=== PATIENT | female | born 1990 | race American Indian/Alaskan Native ===

== ENCOUNTER 2016-07-11 | Emergency (ER) | payer MEDICAID ==
[2016-07-11 00:51] VITALS: BP 130/80
== END 2016-07-11 00:49 | disposition left against medical advice (07) ==
LOC: ED
DX: K08.89 Other specified disorders of teeth and supporting structures (principal); Z53.21 Procedure and treatment not carried out due to patient leaving prior to being seen by health care provider

== ENCOUNTER 2016-08-17 18:06 | Emergency (ER) | payer MEDICAID ==
[2016-08-17 19:56] LABS: Basophils % (Auto) 0.3 % (0.0-1.8); Eosinophils % (Auto) 0.2 % (0.0-4.3); Hematocrit 36.2 % (30.3-42.9); Mean Corpuscular HGB Conc 33 % (30-34); Mean Corpuscular Hemoglobin 27 pg (28-32); Mean Corpuscular Volume 82 fl (79-97); Platelet Count 194 K/mm3 (140-440); Red Blood Count 4.42 M/mm3 (3.65-5.03); Red Cell Distribution Width 14.2 % (13.2-15.2); White Blood Count 11.4 K/mm3 (4.5-11.0)
[2016-08-17 20:09] LABS: Anion Gap 14 mmol/L; BUN/Creatinine Ratio 6.66; Blood Urea Nitrogen 4 mg/dL (7-17); Calcium 8.9 mg/dL (8.4-10.2); Carbon Dioxide 22 mmol/L (22-30); Chloride 99.6 mmol/L (98-107); Glucose 85 mg/dL (65-100); Sodium 132 mmol/L (137-145)
[2016-08-17 20:28] LABS: Bacteria,Urine 1+ /HPF (Negative); Bilirubin,Urine NEG (Negative); Blood,Urine NEG (Negative); Ketones,Urine NEG (Negative); Leukocyte Esterase,Urine MOD (Negative); Mucus,Urine FEW /HPF; Nitrite,Urine NEG (Negative); Protein,Urine <15 mg/dL mg/dL (Negative); Urobilinogen,Urine < 2.0 mg/dL (<2.0); WBC,Urine < 1.0 /HPF (0.0-6.0)
[2016-08-17] MEDS ORDERED: ZITHROMAX PO ONE (22:43)
[2016-08-17] MEDS ORDERED: ROBITUSSIN DM PO ONE (22:48)
[2016-08-17] MEDS ORDERED: TYLENOL PO ONE (22:48)
--- NOTE | 2016-08-17 22:55 | Emergency Department Report ---
HPI - General Chief Complaint: Upper Respiratory Infection Time Seen by Provider: 08/17/16 22:25 - HPI HPI: The patient's 26-year-old female who presents for evaluation of cough and chest pain. The patient reports 1 week of productive cough of yellow sputum, and associated with bilateral anterior chest pain, aching in quality, 7/10 in severity, exacerbated with coughing, improved with rest. The patient denies trauma to the chest wall, fever, syncope, hemoptysis, unilateral leg swelling, oral contraceptive use, recent immobilization, history of DVT or PE, hx cancer. The patient shares that she tested positive for 1 week ago. ED Past Medical Hx - Past Medical History Hx Hypertension: Yes Hx Congestive Heart Failure: No Hx Diabetes: No Hx Deep Vein Thrombosis: No Hx Renal Disease: No Hx Sickle Cell Disease: No Hx Headaches / Migraines: Yes Hx Seizures: No Hx Asthma: No Hx COPD: No Hx HIV: No Additional medical history: Abscess left armpit in the past. Hemorrhoids - Surgical History Past Surgical History?: Yes Additional Surgical History: 08/2013 ----PT DENIES THIS INFO TODAY - Social History Smoking Status: Current Every Day Smoker Substance Use Type: None - Medications Home Medications: Home Medications Medication Instructions Recorded Confirmed Last Taken Type Sertraline HCl [Zoloft] 50 mg PO DAILY 01/29/16 01/29/16 Unknown History Acetaminophen/Codeine [Tylenol #3] 1 tab PO Q8H PRN #10 tablet 03/06/16 Unknown Rx Hydrocortisone 2.5% [Proctosol-Hc] 28.35 gm NE BID #1 tube 03/06/16 Unknown Rx Amoxicillin [Amoxicillin TAB] 875 mg PO BID #20 tablet 06/09/16 Unknown Rx Ibuprofen [Motrin 800 MG tab] 800 mg PO BID PRN #14 tablet 06/09/16 Unknown Rx ALBUTEROL Inhaler [ProAir HFA 2 puff IH QID PRN #1 inhalation 08/17/16 Unknown Rx Inhaler] Acetaminophen [Acetaminophen TAB] 500 mg PO Q6HR #30 tablet 08/17/16 Unknown Rx Azithromycin [Zithromax Z-DINORAH] 250 mg PO QDAY #6 tablet 08/17/16 Unknown Rx guaiFENesin DM [Robitussin Dm] 10 ml PO Q6HR #180 ml 08/17/16 Unknown Rx ED Review of Systems ROS: Stated complaint: COLD SYMPTOMS Other details as noted in HPI Constitutional: denies: fever ENT: denies: throat or neck pain Respiratory: reports cough, denies: shortness of breath Cardiovascular: reports chest pain Endocrine: denies unexplained weight loss or gain Gastrointestinal: denies: abdominal pain, nausea Genitourinary: denies: dysuria Musculoskeletal: denies: leg swelling Skin: denies: rash Neurological: denies: headache Hematological/Lymphatic: denies: easy bleeding or easy bruising Psych: denies sadness or hopelessness Physical Exam - Physical Exam Vital Signs: Vital Signs 08/17/16 19:03 Temperature 99.6 F Pulse Rate 117 H Respiratory 20 Rate Blood Pressure 127/82 O2 Sat by Pulse 100 Oximetry Physical Exam: General: well-nourished, well-developed, no acute distress Head: Normocephalic, atraumatic Eyes: normal sclera ENT: Mucous membranes are pale and dry, bilateral nasal congestion present Neck: trachea midline, neck supple, No neck stiffness, no cervical adenopathy Respiratory: Breath sounds equal bilaterally, no wheezing, rales, or rhonchi Cardio: S1 and S2 present, no murmurs, rubs, gallops, capillary refill is delayed Abdomen: Normoactive bowel sounds, soft abdomen, no tenderness Chest WALL/Back: tenderness to palpation of the bilateral anterior chest wall, no CVA tenderness with percussion Musc: No pitting edema Skin: No rash Neuro: no facial drooping, normal speech Psych: Normal affect ED Course Vital Signs 08/17/16 19:03 Temperature 99.6 F Pulse Rate 117 H Respiratory 20 Rate Blood Pressure 127/82 O2 Sat by Pulse 100 Oximetry ED Medical Decision Making - Lab Data Result diagrams: 08/17/16 19:41 08/17/16 19:41 - Medical Decision Making The patient was seen and examined by myself. The patient is placed on a stem roller or crusher operator and continuous pulse ox. On initial evaluation, the patient was found to be in no distress. Evaluation orders were placed. EKG was negative for findings suggestive of acute cardiac infarct. The patient is given robitussin DM for their cough, Tylenol for pain, and a Zithromax tab. Lab results were not concerning. The patient declined chest x-ray citing preference to avoid potential radiation exposure to fetus, despite being informed that the fetus could be shielded with lead. The patient was reevaluated and reported that their symptoms were improved. . On reexamination the patient is found to have normal respiratory rate and O2 sat on pulse oximetry, with no costal retractions or diminishment of breath sounds on auscultation. The patient has a low port score and is suitable for home antibiotic treatment, if pneumonia is in fact present. She is given a prescription for Zithromax. The patient is stable for discharge with outpatient follow-up. The patient is given follow-up and return instructions. The patient expressed understanding and agreed with the plan. The patient is discharged in stable condition. Critical care attestation.: If time is entered above; I have spent that time in minutes in the direct care of this critically ill patient, excluding procedure time. ED Disposition Clinical Impression: Acute chest pain, Upper respiratory infection, acute, Dehydration Disposition: DISCHARGED TO HOME OR SELFCARE Is pt being admited?: No Does the pt Need Aspirin: No Condition: Stable Instructions: Chest Pain (ED), Costochondritis (ED), Viral Syndrome (ED), Upper Respiratory Infection (ED) Referrals: DR ANTHONY [Other] - 3-5 Days Time of Disposition: 22:50
[2016-08-18 00:06] VITALS: BP 137/88
== END 2016-08-18 00:06 | disposition home or self-care (01) ==
LOC: ED 18:06
DX: J06.9 Acute upper respiratory infection, unspecified (principal); R07.9 Chest pain, unspecified; E86.0 Dehydration; I10 Essential (primary) hypertension; G43.909 Migraine, unspecified, not intractable, without status migrainosus; F17.200 Nicotine dependence, unspecified, uncomplicated
CPT/HCPCS: 36415; 80048; 81001; 84703; 85025; 99284

== ENCOUNTER 2016-11-05 15:06 | Outpatient (CLI) | payer MEDICAID ==
[2016-11-05 17:03] VITALS: BP 126/75
[2016-11-05] MEDS ORDERED: TYLENOL PO ONE (17:20)
[2016-11-05 17:39] LABS: Bacteria,Urine 3+ /HPF (Negative); Bilirubin,Urine NEG (Negative); Blood,Urine NEG (Negative); Ketones,Urine NEG (Negative); Leukocyte Esterase,Urine TR (Negative); Mucus,Urine 3+ /HPF; Nitrite,Urine NEG (Negative)
== END 2016-11-05 18:10 | disposition home or self-care (01) ==
LOC: TRG 15:06
PROVIDERS: ATTEND Obstetrics & Gynecology
DX: O47.1 False labor at or after 37 completed weeks of gestation (principal); Z3A.38 38 weeks gestation of pregnancy
CPT/HCPCS: 59025; 81001

== ENCOUNTER 2016-11-07 22:09 | Outpatient (CLI) | payer MEDICAID ==
[2016-11-07 22:27] VITALS: BP 130/81
== END 2016-11-07 22:53 | disposition home or self-care (01) ==
LOC: TRG 22:09
PROVIDERS: ATTEND Obstetrics & Gynecology
DX: O47.1 False labor at or after 37 completed weeks of gestation (principal); Z3A.38 38 weeks gestation of pregnancy
CPT/HCPCS: 59025

== ENCOUNTER 2016-11-15 01:49 | Outpatient (CLI) | payer MEDICAID ==
[2016-11-15] MEDS ORDERED: ROBITUSSIN PO PRN (02:25)
[2016-11-15 03:36] LABS: Hematocrit 34.7 % (30.3-42.9); Hemoglobin 11.2 gm/dl (10.1-14.3); Mean Corpuscular HGB Conc 32 % (30-34); Mean Corpuscular Volume 80 fl (79-97); Platelet Count 212 K/mm3 (140-440); Red Blood Count 4.34 M/mm3 (3.65-5.03); Red Cell Distribution Width 14.7 % (13.2-15.2); White Blood Count 13.1 K/mm3 (4.5-11.0)
[2016-11-15 03:37] LABS: Mean Corpuscular Hemoglobin 26 pg (28-32)
[2016-11-15 03:39] LABS: Bacteria,Urine 1+ /HPF (Negative); Bilirubin,Urine NEG (Negative); Blood,Urine NEG (Negative); Ketones,Urine NEG (Negative); Leukocyte Esterase,Urine NEG (Negative); Nitrite,Urine NEG (Negative); Protein,Urine <15 mg/dL mg/dL (Negative); Urobilinogen,Urine < 2.0 mg/dL (<2.0); WBC,Urine < 1.0 /HPF (0.0-6.0)
[2016-11-15 04:00] LABS: Alanine Aminotransferase 8 units/L (7-56)
[2016-11-15 04:14] VITALS: BP 134/92
--- NOTE | 2016-11-15 04:14 | XRay Report ---
FINAL REPORT PROCEDURE: XR CHEST ROUTINE 2V TECHNIQUE: PA and lateral chest radiographs were obtained. CPT 06345 HISTORY: coughing COMPARISON: No prior studies are available for comparison. FINDINGS: Heart: Normal. Mediastinum/Vessels: Normal. Lungs/Pleural space: Normal. Bony thorax: No acute osseous abnormality. Other: IMPRESSION: Normal examination.
[2016-11-15 04:49] LABS: Lactate Dehydrogenase 222 units/L (91-180); Uric Acid 4.8 mg/dL (3.5-7.6)
== END 2016-11-15 04:35 | disposition home or self-care (01) ==
LOC: TRG 01:49
PROVIDERS: ATTEND Obstetrics & Gynecology
DX: O47.1 False labor at or after 37 completed weeks of gestation (principal); O26.893 Other specified pregnancy related conditions, third trimester; R05 Cough; O99.333 Smoking (tobacco) complicating pregnancy, third trimester; Z3A.39 39 weeks gestation of pregnancy
CPT/HCPCS: 36415; 59025; 71020; 81001; 82565; 83615; 84450; 84460; 84550; 85027

== ENCOUNTER 2016-11-20 22:21 | Outpatient (CLI) | payer MEDICAID ==
[2016-11-20 23:51] VITALS: BP 133/87
== END 2016-11-21 00:02 | disposition home or self-care (01) ==
LOC: TRG 22:21
PROVIDERS: ATTEND Obstetrics & Gynecology
DX: O48.0 Post-term pregnancy (principal); Z3A.40 40 weeks gestation of pregnancy

== ENCOUNTER 2016-11-22 18:35 | Outpatient (CLI) | payer MEDICAID ==
[2016-11-22 20:00] LABS: Bacteria,Urine 3+ /HPF (Negative); Bilirubin,Urine NEG (Negative); Blood,Urine NEG (Negative); Ketones,Urine NEG (Negative); Leukocyte Esterase,Urine SM (Negative); Mucus,Urine FEW /HPF; Nitrite,Urine NEG (Negative); Protein,Urine <15 mg/dL mg/dL (Negative); Urobilinogen,Urine < 2.0 mg/dL (<2.0)
[2016-11-22 20:58] VITALS: BP 120/64
== END 2016-11-22 20:10 | disposition home or self-care (01) ==
LOC: TRG 18:35 → LD 11-23 03:07 → TRG 11-23 03:13
PROVIDERS: ATTEND Obstetrics & Gynecology
DX: Z34.83 Encounter for supervision of other normal pregnancy, third trimester (principal); Z3A.40 40 weeks gestation of pregnancy
CPT/HCPCS: 59025; 81001

== ENCOUNTER 2016-11-28 11:37 | Outpatient (CLI) | payer MEDICAID ==
[2016-11-28 12:36] VITALS: BP 123/86
[2016-11-28 12:38] LABS: Bacteria,Urine 1+ /HPF (Negative); Bilirubin,Urine NEG (Negative); Blood,Urine NEG (Negative); Ketones,Urine NEG (Negative); Leukocyte Esterase,Urine LG (Negative); Mucus,Urine FEW /HPF; Nitrite,Urine NEG (Negative); Protein,Urine <15 mg/dL mg/dL (Negative); Urobilinogen,Urine < 2.0 mg/dL (<2.0)
== END 2016-11-28 12:51 | disposition home or self-care (01) ==
LOC: TRG 11:37
PROVIDERS: ATTEND Obstetrics & Gynecology
DX: O48.0 Post-term pregnancy (principal); Z3A.41 41 weeks gestation of pregnancy
CPT/HCPCS: 59025; 81001

== ENCOUNTER 2016-11-28 20:36 | Inpatient (IN) | payer MEDICAID ==
[2016-11-28] MEDS ORDERED: SUBLIMAZE ONE (21:50)
[2016-11-28] MEDS ORDERED: BENADRYL PO PRN (22:10)
[2016-11-28] MEDS ORDERED: TORADOL IV PRN (22:10)
[2016-11-28] MEDS ORDERED: ZOFRAN IV PRN (22:10)
[2016-11-28] MEDS ORDERED: PHENERGAN PR PRN (22:10)
[2016-11-28] MEDS ORDERED: DULCOLAX PR PRN (22:10)
[2016-11-28] MEDS ORDERED: TYLENOL PO PRN (22:10)
[2016-11-28] MEDS ORDERED: PHENERGAN PO PRN (22:10)
[2016-11-28] MEDS ORDERED: MILK OF MAGNESIA PO PRN (22:10)
[2016-11-28] MEDS ORDERED: TUCKS PAD TP PRN (22:10)
[2016-11-28] MEDS ORDERED: PERCOCET 5/325 PO PRN (22:10)
[2016-11-28] MEDS ORDERED: ANUCORT-HC PR PRN (22:10)
[2016-11-28] MEDS ORDERED: LANSINOH TP PRN (22:10)
[2016-11-28] MEDS ORDERED: SUBLIMAZE IV ONE (22:13)
[2016-11-28] MEDS ORDERED: SENOKOT S PO SCH (23:00)
[2016-11-28] MEDS ORDERED: PITOCin/NS 20 UNIT/1000ML DRIP 20 UNITS/1,000 ML BAG IV SCH (23:00)
[2016-11-28] MEDS ORDERED: SODIUM CHLORIDE FLUSH SYRINGE 10 ML IV PRN (23:00)
--- NOTE | 2016-11-28 23:19 | History and Physical Report ---
History of Present Illness Date of examination: 11/28/16 Date of admission: 11/28/16 20:36 Chief complaint: Delivered at home History of present illness: This is a 26 yo G P at 40 weeks came in by ambulance after delivering viable male at home. She was seen earlier today noted to be 1cm. she stated that she went to bathroom and had no contractions and on toilet noted to have to make a bowel movement and baby delviered by cousin. She is patient of [facility]. OB problem list include morbid obesity late entry to care at 27+6 days close conception Desires BTl and consented lapse of care 27-33 weeks labs: O+ antibody neg H/H 10.4/32.8 pap normal Rubella IMM RPR neg urine cultrue neg hep neg HIV neg PLt 180 HSv2 neg AA chai neg chlam neg CF neg DM 106 Past History Past Medical History: other (morbid obesity ) Past Surgical History: no surgical history MANAGER SUBWAY History: chlamydia, trichomonas Family/Genetic History: none Social history: single, smoking. denies: alcohol abuse, prescription drug abuse - Obstetrical History Expected Date of Delivery: 11/27/16 Actual Gestation: 40 Week(s) 1 Day(s) : 3 Para: 2 Hx # Term Pregnancies: 2 Number of Pregnancies: 0 Spontaneous Abortions: 0 Induced : 0 Number of Living Children: 2 Medications and Allergies Allergies Allergy/AdvReac Type Severity Reaction Status Date / Time No Known Allergies Allergy Verified 01/29/16 14:07 Home Medications Medication Instructions Recorded Confirmed Last Taken Type Sertraline HCl [Zoloft] 50 mg PO DAILY 01/29/16 01/29/16 Unknown History Acetaminophen/Codeine [Tylenol #3] 1 tab PO Q8H PRN #10 tablet 03/06/16 Unknown Rx Hydrocortisone 2.5% [Proctosol-Hc] 28.35 gm NE BID #1 tube 03/06/16 Unknown Rx Amoxicillin [Amoxicillin TAB] 875 mg PO BID #20 tablet 06/09/16 Unknown Rx Ibuprofen [Motrin 800 MG tab] 800 mg PO BID PRN #14 tablet 06/09/16 Unknown Rx ALBUTEROL Inhaler [ProAir HFA 2 puff IH QID PRN #1 inhalation 08/17/16 Unknown Rx Inhaler] Acetaminophen [Acetaminophen TAB] 500 mg PO Q6HR #30 tablet 08/17/16 Unknown Rx Azithromycin [Zithromax Z-DINORAH] 250 mg PO QDAY #6 tablet 08/17/16 Unknown Rx guaiFENesin DM [Robitussin Dm] 10 ml PO Q6HR #180 ml 08/17/16 Unknown Rx Active Meds: Active Medications Acetaminophen (Tylenol) 650 mg PO Q4H PRN PRN Reason: Pain MILD(1-3)/Fever >100.5/MACK Acetaminophen/Hydrocodone Bitart (Polaris 5/325) 2 each PO Q6H PRN PRN Reason: Pain, Moderate (4-6) Bisacodyl (Dulcolax) 10 mg NE BID PRN PRN Reason: Constipation Diphenhydramine HCl (Benadryl) 25 mg PO Q6H PRN PRN Reason: Itching Diphtheria/Tetanus/Acell Pertussis (Boostrix) 0.5 ml IM .ONCE ONE Stop: 11/30/16 06:01 Docusate Sodium (Colace) 100 mg PO BID LAMAR Hydrocortisone Acetate (Anucort-Hc) 25 mg NE BID PRN PRN Reason: Hemorrhoids Oxytocin/Sodium Chloride (Pitocin/Ns 20 Unit/1000ml Drip) 20 units in 1,000 mls @ 250 mls/hr IV DIRECT LAMAR Ibuprofen (Motrin) 600 mg PO Q6HR LAMAR Ketorolac Tromethamine (Toradol) 30 mg IV Q6H PRN PRN Reason: Pain, Moderate (4-6) Stop: 12/03/16 22:09 Magnesium Hydroxide (Milk Of Magnesia) 30 ml PO HS PRN PRN Reason: Constipation Measles/Mumps/Rubella Vaccine Live (M-M-R Ii Vaccine) 0.5 ml SUB-Q .ONCE ONE Stop: 11/29/16 22:11 Multi-Ingredient Ointment (Lansinoh) 1 applic TP PRN PRN PRN Reason: Sore Nipples Multivitamins/Iron/Calcium ( Vitamin) 1 each PO QDAY LAMAR Ondansetron HCl (Zofran) 4 mg IV Q8H PRN PRN Reason: Nausea And Vomiting Oxycodone/Acetaminophen (Percocet 5/325) 1 tab PO Q6H PRN PRN Reason: Pain, Moderate (4-6) Promethazine HCl (Phenergan) 25 mg NE Q6H PRN PRN Reason: Nausea And Vomiting Promethazine HCl (Phenergan) 25 mg PO Q6H PRN PRN Reason: Nausea And Vomiting Senna/Docusate Sodium (Senokot S) 2 tab PO Q12HR LAMAR Sodium Chloride (Sodium Chloride Flush Syringe 10 Ml) 10 ml IV PRN PRN PRN Reason: LINE FLUSH Witch Asiya/Glycerin (Tucks Pad) 1 each TP PRN PRN PRN Reason: Hemorrhoid/cleansing/soothing Review of Systems All systems: negative - Vital Signs Vital signs: Vital Signs Pulse Pulse Ox 81 98 11/28/16 20:54 11/28/16 20:54 Temp Pulse Resp BP Pulse Ox 76 139/80 98 11/28/16 21:00 11/28/16 21:00 11/28/16 20:54 - Physical Exam Breasts: Positive: normal Cardiovascular: Regular rate, Normal S1 Lungs: Positive: Clear to auscultation, Normal air movement Abdomen: Positive: normal appearance, soft, normal bowel sounds. Negative: distention, tenderness Genitourinary (Female): Positive: normal external genitalia, normal perenium Vulva: both: normal Vagina: Positive: normal moisture Uterus: Positive: normal size, normal contour Anus/Rectum: Positive: normal perianal skin Extremities: Positive: normal Deep Tendon Reflex Grade: Normal +2 Results All other labs normal. Assessment and Plan A/p s/p at home will deliver placenta IVF initiate labs initate PP care and orders
[2016-11-28] MEDS: MOTRIN PO SCH (23:37)
[2016-11-28] MEDS: NORCO 5/325 PO PRN (23:53)
[2016-11-29 02:06] LABS: Hematocrit 34.8 % (30.3-42.9); Hemoglobin 11.3 gm/dl (10.1-14.3); Mean Corpuscular HGB Conc 32 % (30-34); Mean Corpuscular Volume 79 fl (79-97); Platelet Count 220 K/mm3 (140-440); Red Blood Count 4.42 M/mm3 (3.65-5.03); Red Cell Distribution Width 14.6 % (13.2-15.2); White Blood Count 18.4 K/mm3 (4.5-11.0)
[2016-11-29 02:14] LABS: Mean Corpuscular Hemoglobin 26 pg (28-32)
[2016-11-29] MEDS ORDERED: SUBLIMAZE ONE (02:48)
[2016-11-29] MEDS: NORCO 5/325 PO PRN ×3 (05:08→18:08)
[2016-11-29] MEDS: MOTRIN PO SCH ×3 (05:08→18:08)
[2016-11-29] MEDS ORDERED: PRENATAL VITAMIN PO SCH (10:00)
[2016-11-29] MEDS ORDERED: COLACE PO SCH (10:00)
[2016-11-29 10:57] LABS: Hematocrit 32.1 % (30.3-42.9); Hemoglobin 10.5 gm/dl (10.1-14.3)
[2016-11-29] MEDS ORDERED: POLYSPORIN TP SCH (12:00)
--- NOTE | 2016-11-29 12:50 | Procedure Note ---
OB Delivery Note - Delivery Date of Delivery: 11/28/16 Surgeon: JUNO MENDEZ Estimated blood loss: 200cc - Vaginal Delivery position: OA Intrapartum events: precipitous labor- <3hr Delivery induction: none Delivery monitor: none Route of delivery: Delivery placenta: spontaneous Delivery cord: 3 umbilical vessels Episiotomy: none Delivery laceration: none Anesthesia: none Delivery comments: Patient delivered at home and was transported to hospital. male viable infant The placenta delivered spontaneously intact with 3 vessel cord. 300 cc bleeding 10IM pit given. no lacerations noted. patient tolerated procedure well.
--- NOTE | 2016-11-29 12:53 | Progress Note ---
Assessment and Plan A/p PPD#1 s/p at home doing well ambulating well decreased bleeding pain well conteolled tolerating diet routine pp orders patient desires to leave after 24 hrs ( will check GBS if neg will discharge after 10 p) f/u in 4 weeks Subjective - Subjective Date of service: 11/29/16 Principal diagnosis: precipitous delviery at home Interval history: This is a 26 yo G P at 40 weeks came in by ambulance after delivering viable male at home. She was seen earlier today noted to be 1cm. she stated that she went to bathroom and had no contractions and on toilet noted to have to make a bowel movement and baby delviered by cousin. She is patient of [facility]. OB problem list include morbid obesity late entry to care at 27+6 days close conception Desires BTl and consented lapse of care 27-33 weeks labs: O+ antibody neg H/H 10.4/32.8 pap normal Rubella IMM RPR neg urine cultrue neg hep neg HIV neg PLt 180 HSv2 neg AA chai neg chlam neg CF neg DM 106 Patient reports: appetite normal, voiding normally, pain well controlled, flatus , ambulating normally [place]: doing well, bottle feeding Objective - Vital Signs Latest vital signs: Vital Signs Temp Pulse Pulse Resp BP BP Pulse Ox 11/29/16 08:50 97.9 F 70 18 142/79 11/29/16 05:00 98.1 F 66 18 112/57 11/29/16 01:52 98.2 F 80 18 121/66 11/28/16 21:00 76 139/80 11/28/16 20:58 81 134/76 11/28/16 20:54 81 98 Intake and Output 11/28/16 11/29/16 11/29/16 22:59 06:59 14:59 Intake Total 240 240 Output Total 300 750 Balance -60 -510 Intake: Oral 240 Intake, Free Water 240 Output: Urine 300 750 Void 300 750 Other: Total, Intake Amount 240 Total, Output Amount 300 750 Weight 130.635 kg - Exam Breasts: Present: normal Cardiovascular: Present: Regular rate, Normal S1 Lungs: Present: Clear to auscultation, Normal air movement Abdomen: Present: normal appearance, soft, normal bowel sounds. Absent: distention, tenderness, guarding Vulva: both: normal Uterus: Present: normal, firm, fundal height below umbilicus (2cm below). Absent: bogginess, tenderness Extremities: Present: normal Deep Tendon Reflex Grade: Normal +2 - Labs Labs: Abnormal lab results 11/29/16 Range/Units 01:46 WBC 18.4 H (4.5-11.0) K/mm3 MCH 26 L (28-32) pg
--- NOTE | 2016-11-29 12:58 | Discharge Summary ---
Providers - Providers Date of Admission: 11/28/16 20:36 Date of discharge: 11/29/16 Attending physician: JUNO MENDEZ MD Primary care physician: JUNO MENDEZ MD Hospitalization Delivery: Episiotomy: none Laceration: none Other procedures: none complications: none Discharge diagnosis: IUP at term delivered [place] baby: male Condition at discharge: Good Disposition: DC-01 TO HOME OR SELFCARE Plan - Discharge Medications Prescriptions: Ibuprofen [Motrin] 600 mg PO Q8H PRN #30 tablet PRN Reason: Pain oxyCODONE /ACETAMINOPHEN [Percocet 5/325] 1 tab PO Q6HR PRN #30 tablet PRN Reason: Pain - Provider Discharge Summary Activity: routine, no sex for 6 weeks Diet: routine Instructions: routine Additional instructions: [] Smoking cessation referral if applicable(refer to patient education folder for contact #) [] Refer to [facility] Book[facility] Call your doctor immediately for: * Fever > 100.5 * Heavy vaginal bleeding ( >1 pad per hour) * Severe persistent headache * Shortness of breath * Reddened, hot, painful area to leg or breast * Drainage or odor from incision. * Keep incision clean and dry at all times and follow doctor's instructions regarding bathing/showering - Follow up plan Follow up: JUNO MENDEZ MD [Primary Care Provider] - 12/21/16
[2016-11-29 17:31] VITALS: BP 118/72
[2016-11-29] MEDS ORDERED: M-M-R II VACCINE SUB-Q ONE (22:10)
[2016-11-30] MEDS ORDERED: BOOSTRIX IM ONE (06:00)
== END 2016-11-29 22:05 | disposition home or self-care (01) | DRG 775 ==
LOC: LD 20:36 → OB 11-29 00:45
PROVIDERS: ADMIT Obstetrics & Gynecology; ATTEND Obstetrics & Gynecology
PROC: 10E0XZZ Delivery of Products of Conception, External Approach (ICD-10-PCS; principal; 2016-11-28)
DX: Z39.0 Encounter for care and examination of mother immediately after delivery (principal); O62.3 Precipitate labor; Z3A.39 39 weeks gestation of pregnancy; Z37.0 Single live birth
CPT/HCPCS: 36415; 85014; 85018; 85027; J2590; J3010

== ENCOUNTER 2017-07-09 17:42 | Emergency (ER) | payer SELFPAY ==
[2017-07-09 18:32] VITALS: BP 142/93
[2017-07-09] MEDS ORDERED: CLARITIN PO ONE (19:51)
--- NOTE | 2017-07-09 20:02 | Emergency Department Report ---
ED Rash HPI - HPI Chief Complaint: Skin Rash Stated Complaint: INSECT BITES Time Seen by Provider: 07/09/17 19:39 Duration: 1 week Location: Upper Extremities, Lower Extremities Suspected Cause: Insect Rash Symptoms: Yes Itching, No Facial Swelling, No Tongue/Oral Swelling, No Breathing Difficulties, No Choking Sensation, No Wheezing/Dyspnea, No Peeling, No Blistering, No Fever, No Lightheaded, No Malaise, No Myalgias Severity: moderate Other History: This is a 27 y.o. female with itchy rash to BUE for 1 week. Patient states she is staying at friend house and everyone in the house began to have a rash 4 days ago. She thought it was coming from the laundry detergent but when they changed brands they continued to itch and rash got worse. Mother is unsure of cause. She have not tried anything OTC for itching. ED Review of Systems ROS: Stated complaint: INSECT BITES Other details as noted in HPI Constitutional: denies: chills, fever Respiratory: denies: cough, shortness of breath, wheezing Cardiovascular: denies: chest pain, palpitations Skin: rash (BUE), pruritus. denies: lesions, change in color ED Past Medical Hx - Past Medical History Hx Hypertension: Yes Hx Congestive Heart Failure: No Hx Diabetes: No Hx Deep Vein Thrombosis: No Hx Renal Disease: No Hx Sickle Cell Disease: No Hx Headaches / Migraines: Yes Hx Seizures: No Hx Asthma: No Hx COPD: No Hx HIV: No Additional medical history: Abscess left armpit in the past. Hemorrhoids - Surgical History Additional Surgical History: 08/2013 ----PT DENIES THIS INFO TODAY - Social History Smoking Status: Never Smoker - Medications Home Medications: Home Medications Medication Instructions Recorded Confirmed Last Taken Type Ibuprofen [Motrin] 600 mg PO Q8H PRN #30 tablet 11/29/16 Unknown Rx Pnv Plus Multivit Tab 1 tab PO DAILY 11/29/16 11/29/16 Unknown History oxyCODONE /ACETAMINOPHEN [Percocet 1 tab PO Q6HR PRN #30 tablet 11/29/16 Unknown Rx 5/325] Permethrin 5% [Acticin 5% CREAM] 1 applicatio TP ONCE #1 tube 07/09/17 Unknown Rx Rash Exam - Exam General: Vital signs noted. No distress. Alert and acting appropriately. HEENT: No Periorbital Edema, No Conjuctival Injection, No Chemosis, No Perioral Edema, No Tongue Edema, No Uvular Edema, No Compromised Airway, No Drooling Lungs: Yes Good Air Exchange, No Wheezes, No Ronchi, No Stridor, No Cough, No Labored Respirations, No Retractions, No Use of Accessory Muscles, No Other Abnormal Lung Sounds Heart: Yes Regular, No Murmur Skin: Yes Urticarial Rash, Yes Maculopapular Rash (3 mm papules between fingers on both hands, lines on BUE), No Morbilliform rash, No Bulla(e), No Excoriations , No Weeping, No Tenderness, No Erythema, No Edema, No Encrustations Other: Positive: Neurologic Normal ED Course Vital Signs 07/09/17 18:30 Temperature 98 F Pulse Rate 96 H Respiratory 18 Rate Blood Pressure 142/93 O2 Sat by Pulse 100 Oximetry ED Medical Decision Making - Medical Decision Making This is a 27 y.o. female presents with pruritus rash to BUE. Patient examined by me. Patient given loratadine once in ER. Rash appears to be scabies. Discussed plan to treat outpatient with patient. Patient agreed with ED plan. Discharged home with permethrin cream. Discussed plan to disinfect home. Informed of itching possibly lasting for 2-6 weeks after treatment. Follow up with PCP if symptoms are not improved in 2 weeks. Critical care attestation.: If time is entered above; I have spent that time in minutes in the direct care of this critically ill patient, excluding procedure time. ED Disposition Clinical Impression: Scabies Disposition: DC-01 TO HOME OR SELFCARE Is pt being admited?: No Does the pt Need Aspirin: No Condition: Stable Instructions: Scabies (ED) Additional Instructions: Apply to all areas of body from neck down and leave on overnight for 8-14 hours. Wash off in the morning and reapply in one week. Wash clothing, bedding, and drapes in hot water and dry. Items that can not be washed should be placed in a plastic bag for 72 hours. Itching may persist up to 2-4 weeks after treatment. Complete medication as prescribed. Follow up with Primary Care Provider if symptoms are not improved after 2 weeks. Prescriptions: Permethrin 5% [Acticin 5% CREAM] 1 applicatio TP ONCE #1 tube Referrals: [facility] [Outside] - 3-5 Days [facility] [Outside] - 3-5 Days [facility] [Outside] - 3-5 Days Time of Disposition: 20:20 Print Language: ICELANDIC
== END 2017-07-09 21:49 | disposition home or self-care (01) ==
LOC: ED 17:42
DX: B86 Scabies (principal); I10 Essential (primary) hypertension; G43.909 Migraine, unspecified, not intractable, without status migrainosus
CPT/HCPCS: 99282

== ENCOUNTER 2018-07-16 13:03 | Emergency (ER) | payer OTHER ==
[2018-07-16 14:19] LABS: Bilirubin,Urine NEG (Negative); Blood,Urine NEG (Negative); Color,Urine Yellow (Yellow); Mucus,Urine FEW /HPF; Protein,Urine <15 mg/dL mg/dL (Negative)
[2018-07-16] MEDS ORDERED: MORPHINE IV ONE (15:02)
[2018-07-16] MEDS ORDERED: TYLENOL PO STA (15:02)
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
[2018-07-16] MEDS ORDERED: ZOFRAN IV ONE (15:21)
[2018-07-16 15:26] LABS: Hematocrit 32.2 % (30.3-42.9); Hemoglobin 10.7 gm/dl (10.1-14.3); Mean Corpuscular HGB Conc 33 % (30-34); Mean Corpuscular Volume 84 fl (79-97); Platelet Count 214 K/mm3 (140-440); Red Blood Count 3.83 M/mm3 (3.65-5.03); Red Cell Distribution Width 15.9 % (13.2-15.2)
[2018-07-16 15:41] LABS: BUN/Creatinine Ratio 7; Blood Urea Nitrogen 5 mg/dL (7-17); Calcium 8.8 mg/dL (8.4-10.2); Hemolysis Index 4
[2018-07-16] MEDS ORDERED: D5/0.45NS 1,000 ML IV SCH (16:00)
[2018-07-16 17:24] VITALS: BP 125/80
--- NOTE | 2018-07-16 17:40 | Ultrasound Report ---
FINAL REPORT EXAM: US OB TRANSVAGINAL HISTORY: vaginal bleeding TECHNIQUE: Ultrasound obstetrical transvaginal PRIORS: None. FINDINGS: There is gestational sac within the uterus There is a pole identified with crown-rump length of 2.6 centimeters corresponding to estimated gestational age 9 weeks 3 days Estimated delivery February 15, 2019. cardiac activity present with heart rate 157 beats per minute A yolk sac is identified There is a small subchorionic hemorrhage 1.3 x 1.0 by 1.0 centimeters Right ovary is 4.1 x 3.6 x 4.8 centimeters. There is a 3.1 centimeter right ovarian cyst. Left ovary is 3.3 x 1.5 x 4.2 centimeters. IMPRESSION: Single live intrauterine gestation estimated at 9 weeks 3 days Small subchorionic hemorrhage
--- NOTE | 2018-07-16 17:45 | Ultrasound Report ---
FINAL REPORT EXAM: US OB < = 14 WEEKS FETUS HISTORY: vaginal bleeding TECHNIQUE: PRIORS: None. FINDINGS: There is gestational sac within the uterus There is a pole identified with crown-rump length of 2.6 centimeters corresponding to estimated gestational age 9 weeks 3 days Estimated delivery February 15, 2019. cardiac activity present with heart rate 157 beats per minute A yolk sac is identified There is a small subchorionic hemorrhage 1.3 x 1.0 by 1.0 centimeters Right ovary is 4.1 x 3.6 x 4.8 centimeters. There is a 3.1 centimeter right ovarian cyst. Left ovary is 3.3 x 1.5 x 4.2 centimeters. IMPRESSION: Single live intrauterine gestation estimated at 9 weeks 3 days Small subchorionic hemorrhage
== END 2018-07-16 17:25 | disposition left against medical advice (07) ==
LOC: ED 13:03
DX: O9A.211 Injury, poisoning and certain other consequences of external causes complicating pregnancy, first trimester (principal); O46.91 Antepartum hemorrhage, unspecified, first trimester; I10 Essential (primary) hypertension; G43.909 Migraine, unspecified, not intractable, without status migrainosus; F17.210 Nicotine dependence, cigarettes, uncomplicated; Z3A.08 8 weeks gestation of pregnancy; V49.9XXA Car occupant (driver) (passenger) injured in unspecified traffic accident, initial encounter; Y93.89 Activity, other specified; Y92.488 Other paved roadways as the place of occurrence of the external cause; Y99.8 Other external cause status
CPT/HCPCS: 36415; 76801; 76817; 80048; 81001; 82550; 83735; 84702; 85027; 86850; 86900; 86901; 96374; 96375; 99285; J2270; J2405

== ENCOUNTER 2018-08-22 09:40 | Emergency (ER) | payer MEDICAID, OTHER ==
[2018-08-22 10:14] VITALS: BP 122/83
[2018-08-22] MEDS ORDERED: PEPCID IV ONE (11:20)
[2018-08-22] MEDS ORDERED: NACL 0.9% 1000 ML 1,000 ML IV ONE (11:20)
[2018-08-22] MEDS ORDERED: ZOFRAN IV ONE (11:20)
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
[2018-08-22 11:26] LABS: HCG Qualitative,Urine Positive (Negative)
[2018-08-22 11:28] LABS: Bacteria,Urine 1+ /HPF (Negative); Bilirubin,Urine NEG (Negative); Blood,Urine NEG (Negative); Color,Urine Yellow (Yellow); Mucus,Urine 1+ /HPF; Protein,Urine <15 mg/dL mg/dL (Negative)
[2018-08-22 11:56] LABS: Basophils % (Auto) 0.2 % (0.0-1.8); Eosinophils % (Auto) 0.4 % (0.0-4.3); Hematocrit 38.9 % (30.3-42.9); Hemoglobin 12.9 gm/dl (10.1-14.3); Lymphocytes # (Auto) 1.5 K/mm3 (1.2-5.4); Lymphocytes % (Auto) 16.5 % (13.4-35.0); Mean Corpuscular HGB Conc 33 % (30-34); Mean Corpuscular Volume 84 fl (79-97); Monocytes # (Auto) 0.4 K/mm3 (0.0-0.8); Monocytes % (Auto) 4.5 % (0.0-7.3); Platelet Count 214 K/mm3 (140-440); Red Blood Count 4.62 M/mm3 (3.65-5.03); Red Cell Distribution Width 14.7 % (13.2-15.2)
[2018-08-22 12:09] LABS: INR 0.88 (0.87-1.13)
[2018-08-22 12:15] LABS: Alanine Aminotransferase 8 units/L (7-56); Albumin 3.9 g/dL (3.9-5); BUN/Creatinine Ratio 13; Blood Urea Nitrogen 8 mg/dL (7-17); Calcium 9.3 mg/dL (8.4-10.2); Hemolysis Index 9
[2018-08-22 12:20] LABS: Bilirubin,Direct < 0.2 mg/dL (0-0.2)
[2018-08-22] MEDS ORDERED: TYLENOL PO ONE (12:45)
[2018-08-22] MEDS ORDERED: TYLENOL ONE (12:50)
== END 2018-08-22 12:54 | disposition home or self-care (01) ==
LOC: ED 09:40
DX: O21.0 Mild hyperemesis gravidarum (principal); O99.612 Diseases of the digestive system complicating pregnancy, second trimester; K29.70 Gastritis, unspecified, without bleeding; O16.2 Unspecified maternal hypertension, second trimester; O99.352 Diseases of the nervous system complicating pregnancy, second trimester; G43.909 Migraine, unspecified, not intractable, without status migrainosus; O99.332 Smoking (tobacco) complicating pregnancy, second trimester; Z3A.17 17 weeks gestation of pregnancy
CPT/HCPCS: 36415; 80048; 80076; 81001; 81025; 83690; 84702; 85025; 85610; 85730; 96361; 96374; 96375; 99283; J2405; J7030

== ENCOUNTER 2018-11-10 00:04 | Outpatient (CLI) | payer MEDICAID ==
[2018-11-10 02:40] VITALS: BP 90/53
[2018-11-10] MEDS ORDERED: LACTATED RINGERS 500 ML IV ONE (02:50)
[2018-11-10 03:43] LABS: Bilirubin,Urine NEG (Negative); Blood,Urine NEG (Negative); Color,Urine Yellow (Yellow); Hyaline Casts,Urine 1 /LPF; Mucus,Urine 2+ /HPF; Protein,Urine <15 mg/dL mg/dL (Negative)
== END 2018-11-10 03:49 | disposition left against medical advice (07) ==
LOC: TRG 00:04
PROVIDERS: ATTEND Obstetrics & Gynecology
DX: O26.892 Other specified pregnancy related conditions, second trimester (principal); O10.012 Pre-existing essential hypertension complicating pregnancy, second trimester; M54.9 Dorsalgia, unspecified; Z3A.26 26 weeks gestation of pregnancy
CPT/HCPCS: 81001

== ENCOUNTER 2018-12-20 13:39 | Outpatient (CLI) | payer MEDICAID ==
[2018-12-20 14:08] VITALS: BP 106/56
[2018-12-20] MEDS ORDERED: LACTATED RINGERS 500 ML IV ONE (14:09)
[2018-12-20 14:37] LABS: Bacteria,Urine 1+ /HPF (Negative); Bilirubin,Urine NEG (Negative); Blood,Urine NEG (Negative); Color,Urine Yellow (Yellow); Mucus,Urine 1+ /HPF; Protein,Urine <15 mg/dL mg/dL (Negative); Urobilinogen,Urine < 2.0 mg/dL (<2.0)
[2018-12-20] MEDS ORDERED: XYLOCAINE 1% MPF 5 mL INFILTRATI ONE (15:30)
[2018-12-20] MEDS ORDERED: ROCEPHIN IM ONE (15:30)
== END 2018-12-20 15:38 | disposition home or self-care (01) ==
LOC: TRG 13:39
PROVIDERS: ATTEND Obstetrics & Gynecology
DX: O26.853 Spotting complicating pregnancy, third trimester (principal); O26.893 Other specified pregnancy related conditions, third trimester; R10.30 Lower abdominal pain, unspecified; O47.03 False labor before 37 completed weeks of gestation, third trimester; O09.213 Supervision of pregnancy with history of pre-term labor, third trimester; O16.3 Unspecified maternal hypertension, third trimester; O99.333 Smoking (tobacco) complicating pregnancy, third trimester; F17.200 Nicotine dependence, unspecified, uncomplicated; Z3A.32 32 weeks gestation of pregnancy
CPT/HCPCS: 81001; 96372; J0696

== ENCOUNTER 2019-01-01 12:04 | Outpatient (CLI) | payer MEDICAID ==
[2019-01-01 12:44] VITALS: BP 112/55
[2019-01-01] MEDS ORDERED: LACTATED RINGERS 500 ML IV ONE (13:06)
[2019-01-01] MEDS ORDERED: BRETHINE SUB-Q ONE (13:07)
[2019-01-01] MEDS ORDERED: BRETHINE ONE (13:10)
[2019-01-01] MEDS ORDERED: LACTATED RINGERS 1,000 ML IV SCH (14:00)
[2019-01-01 14:45] LABS: Bilirubin,Urine NEG (Negative); Blood,Urine NEG (Negative); Color,Urine Yellow (Yellow); Mucus,Urine FEW /HPF; Protein,Urine <15 mg/dL mg/dL (Negative); Urobilinogen,Urine < 2.0 mg/dL (<2.0)
[2019-01-01 14:52] LABS: Amphetamine Screen,Urine PRESUMPTIVE NEGATIVE; Benzodiazepines Screen,Urine PRESUMPTIVE NEGATIVE; Cannabinoid Screen,Urine PRESUMPTIVE NEGATIVE; Cocaine Screen,Urine PRESUMPTIVE NEGATIVE; Methadone Screen,Urine PRESUMPTIVE NEGATIVE; Opiate Screen,Urine PRESUMPTIVE NEGATIVE
== END 2019-01-01 15:40 | disposition home or self-care (01) ==
LOC: TRG 12:04
PROVIDERS: ATTEND Obstetrics & Gynecology
DX: O62.9 Abnormality of forces of labor, unspecified (principal); O99.333 Smoking (tobacco) complicating pregnancy, third trimester; F17.200 Nicotine dependence, unspecified, uncomplicated; Z3A.33 33 weeks gestation of pregnancy
CPT/HCPCS: 59025; 80307; 81001; 96372; J3105; 96360; 96361

== ENCOUNTER 2019-01-22 14:01 | Outpatient (CLI) | payer MEDICAID ==
[2019-01-22 14:50] VITALS: BP 118/76
[2019-01-22] MEDS ORDERED: LACTATED RINGERS 500 ML IV ONE (16:00)
== END 2019-01-22 15:25 | disposition home or self-care (01) ==
LOC: TRG 14:01
PROVIDERS: ATTEND Obstetrics & Gynecology
DX: O47.03 False labor before 37 completed weeks of gestation, third trimester (principal); Z3A.36 36 weeks gestation of pregnancy
CPT/HCPCS: 59025

== ENCOUNTER 2019-01-27 11:51 | Outpatient (CLI) | payer MEDICAID ==
[2019-01-27 12:33] VITALS: BP 117/65
== END 2019-01-27 15:23 | disposition home or self-care (01) ==
LOC: TRG 11:51
PROVIDERS: ATTEND Obstetrics & Gynecology
DX: O47.03 False labor before 37 completed weeks of gestation, third trimester (principal); Z3A.37 37 weeks gestation of pregnancy
CPT/HCPCS: 59025

== ENCOUNTER 2019-02-05 00:15 | Outpatient (CLI) | payer MEDICAID ==
[2019-02-05 02:32] VITALS: BP 114/63
[2019-02-05 03:32] LABS: Bilirubin,Urine NEG (Negative); Blood,Urine NEG (Negative); Color,Urine Yellow (Yellow); Mucus,Urine FEW /HPF; Protein,Urine <15 mg/dL mg/dL (Negative); Urobilinogen,Urine < 2.0 mg/dL (<2.0)
== END 2019-02-05 03:35 | disposition home or self-care (01) ==
LOC: TRG 00:15
PROVIDERS: ATTEND Obstetrics & Gynecology
DX: O60.03 Preterm labor without delivery, third trimester (principal); Z3A.38 38 weeks gestation of pregnancy
CPT/HCPCS: 81001

== ENCOUNTER 2020-04-08 09:48 | Emergency (ER) | payer MEDICAID ==
[2020-04-08 09:54] VITALS: BP 141/98
--- NOTE | 2020-04-08 12:35 | Emergency Department Report ---
ED General Adult HPI - General Chief complaint: Skin/Abscess/Foreign Body Stated complaint: LUMP LT AXILLA Time Seen by Provider: 04/08/20 11:53 Source: patient Mode of arrival: Ambulatory Limitations: No Limitations - History of Present Illness Initial comments: 29-year-old -Northern [place] female patient presents with complaints of painful abscess to the left underarm x1 week. She states it began draining this morning. She rates her pain as 8/10 in severity and denies any fever/chills/sweats, difficulty moving her arm, or numbness/tingling/weakness in her arm. Patient states she has been getting recurrent abscesses in her armpits for some time now and denies being diagnosed with hidradenitis suppurativa in the past - Related Data Home Medications Medication Instructions Recorded Confirmed Last Taken Pnv Plus Multivit Tab 1 tab PO DAILY 11/29/16 02/10/19 Unknown Previous Rx's Medication Instructions Recorded Last Taken Type Ibuprofen [Motrin] 600 mg PO Q8H PRN #30 tablet 11/29/16 Unknown Rx oxyCODONE /ACETAMINOPHEN [Percocet 1 tab PO Q6HR PRN #30 tablet 11/29/16 02/10/19 Rx 5/325] Permethrin 5% [Acticin 5% CREAM] 1 applicatio TP ONCE #1 tube 07/09/17 Unknown Rx Acetaminophen [Tylenol Arthritis] 650 mg PO Q6HR PRN #30 tablet.er 07/16/18 02/06/19 Rx Doxylamine Succinate/Vit B6 1 each PO QHS PRN #30 tablet. 07/16/18 Unknown Rx [Rosemary Infante 10-10 mg Tablet] Sharonda Root [Sharonda] 250 mg PO QID PRN #30 capsule 07/16/18 Unknown Rx Vit-Fe Fumar-FA [ 1 tab PO QDAY #30 tablet 07/16/18 02/09/19 Rx Vitamin] Famotidine [Pepcid] 20 mg PO QDAY #7 tablet 08/22/18 Unknown Rx Ondansetron [Zofran Odt] 4 mg PO Q8HR PRN #20 tab.rapdis 08/22/18 Unknown Rx Promethazine [Phenergan TAB] 25 mg PO Q6HR PRN #20 tab 08/22/18 02/08/19 Rx Ferrous Sulfate [Feosol 325 MG tab] 325 mg PO BID #30 tablet 02/09/19 Unknown Rx Ibuprofen [Motrin] 600 mg PO Q8H PRN #30 tablet 02/09/19 Unknown Rx oxyCODONE /ACETAMINOPHEN [Percocet 1 tab PO Q6HR PRN #20 tablet 02/09/19 Unknown Rx 5/325] Acetaminophen/Codeine [Tylenol 1 tab PO Q8H PRN #8 tab 04/08/20 Unknown Rx /Codeine # 3 tab] Doxycycline Monohydrate 100 mg PO BID 10 Days #20 capsule 04/08/20 Unknown Rx Mupirocin [Bactroban 2% OINT] 1 applic TP TID 10 Days #1 tube 04/08/20 Unknown Rx Allergies Allergy/AdvReac Type Severity Reaction Status Date / Time No Known Allergies Allergy Verified 11/10/18 02:50 ED Review of Systems ROS: Stated complaint: LUMP LT AXILLA Other details as noted in HPI Constitutional: denies: chills, fever Gastrointestinal: denies: abdominal pain, nausea, vomiting Musculoskeletal: denies: joint swelling, arthralgia Skin: lesions. denies: change in color Hematological/Lymphatic: denies: swollen glands ED Past Medical Hx - Past Medical History Previous Medical History?: Yes Hx Hypertension: Yes Hx Congestive Heart Failure: No Hx Diabetes: No Hx Deep Vein Thrombosis: No Hx Renal Disease: No Hx Sickle Cell Disease: No Hx Headaches / Migraines: Yes Hx Seizures: No Hx Asthma: No Hx COPD: No Hx HIV: No Additional medical history: Abscess left armpit in the past. Hemorrhoids - Surgical History Past Surgical History?: No Additional Surgical History: 08/2013 ----PT DENIES THIS INFO TODAY 05/21/15 - Social History Smoking Status: Current Every Day Smoker - Medications Home Medications: Home Medications Medication Instructions Recorded Confirmed Last Taken Type Ibuprofen [Motrin] 600 mg PO Q8H PRN #30 tablet 11/29/16 02/10/19 Unknown Rx Pnv Plus Multivit Tab 1 tab PO DAILY 11/29/16 02/10/19 Unknown History oxyCODONE /ACETAMINOPHEN [Percocet 1 tab PO Q6HR PRN #30 tablet 11/29/16 02/10/19 02/10/19 Rx 5/325] Permethrin 5% [Acticin 5% CREAM] 1 applicatio TP ONCE #1 tube 07/09/17 02/10/19 Unknown Rx Acetaminophen [Tylenol Arthritis] 650 mg PO Q6HR PRN #30 tablet.er 07/16/18 02/10/19 02/06/19 Rx Doxylamine Succinate/Vit B6 1 each PO QHS PRN #30 tablet. 07/16/18 02/10/19 Unknown Rx [Rosemary Infante 10-10 mg Tablet] Sharonda Root [Sharonda] 250 mg PO QID PRN #30 capsule 07/16/18 02/10/19 Unknown Rx Vit-Fe Fumar-FA [ 1 tab PO QDAY #30 tablet 07/16/18 02/10/19 02/09/19 Rx Vitamin] Famotidine [Pepcid] 20 mg PO QDAY #7 tablet 08/22/18 02/10/19 Unknown Rx Ondansetron [Zofran Odt] 4 mg PO Q8HR PRN #20 tab.rapdis 08/22/18 02/10/19 Unknown Rx Promethazine [Phenergan TAB] 25 mg PO Q6HR PRN #20 tab 08/22/18 02/10/19 02/08/19 Rx Ferrous Sulfate [Feosol 325 MG tab] 325 mg PO BID #30 tablet 02/09/19 Unknown Rx Ibuprofen [Motrin] 600 mg PO Q8H PRN #30 tablet 02/09/19 Unknown Rx oxyCODONE /ACETAMINOPHEN [Percocet 1 tab PO Q6HR PRN #20 tablet 02/09/19 Unknown Rx 5/325] Acetaminophen/Codeine [Tylenol 1 tab PO Q8H PRN #8 tab 04/08/20 Unknown Rx /Codeine # 3 tab] Doxycycline Monohydrate 100 mg PO BID 10 Days #20 capsule 04/08/20 Unknown Rx Mupirocin [Bactroban 2% OINT] 1 applic TP TID 10 Days #1 tube 04/08/20 Unknown Rx ED Physical Exam - General Limitations: No Limitations General appearance: alert, in no apparent distress, obese - Head Head exam: Present: atraumatic, normocephalic - Eye Eye exam: Present: normal appearance. Absent: scleral icterus - Respiratory Respiratory exam: Absent: respiratory distress - Cardiovascular Cardiovascular Exam: Present: regular rate, normal rhythm - Neurological Exam Neurological exam: Present: alert, oriented X3, normal gait - Psychiatric Psychiatric exam: Present: normal affect, normal mood - Skin Skin exam: Present: warm, dry, other (2 cm ovoid shaped abscess noted to outer left axilla without surrounding erythema or cellulitic changes; the abscess is open and draining dark yellow purulent fluid; there is tenderness to palpation). Absent: rash ED Course Vital Signs 04/08/20 09:54 Temperature 98.9 F Pulse Rate 103 H Respiratory 16 Rate Blood Pressure 141/98 [Right] O2 Sat by Pulse 99 Oximetry ED Medical Decision Making - Medical Decision Making 29-year-old -[place] female patient presents with complaints of painful abscess to the left underarm x1 week. She states it began draining this morning. She rates her pain as 8/10 in severity and denies any fever/chills/sweats, difficulty moving her arm, or numbness/tingling/weakness in her arm. Patient states she has been getting recurrent abscesses in her armpits for some time now and denies being diagnosed with hidradenitis suppurativa in the past On exam, she has an open draining abscess without cellulitic changes noted to the left axilla; also noted are multiple scarred areas under the axilla bilaterally consistent with hidradenitis suppurativa. Given abscess is open and draining and there are no cellulitic changes patient declined having incision and drainage and will do warm compresses with oral antibiotics. She is to follow-up with her primary care doctor in 3 to 5 days. Also recommend follow-up with a science and operations officer for further evaluation and treatment of hidradenitis suppurativa. She is afebrile. Heart rate on recheck is 92. Patient is stable for discharge home. Wound care and strict return precautions were discussed in detail with patient who verbalizes understanding. Critical care attestation.: If time is entered above; I have spent that time in minutes in the direct care of this critically ill patient, excluding procedure time. ED Disposition Clinical Impression: Abscess of left axilla, Hidradenitis suppurativa Disposition: TO HOME OR SELFCARE Is pt being admited?: No Condition: Stable Instructions: Abscess Incision and Drainage (ED), Abscess (ED) Prescriptions: Mupirocin [Bactroban 2% OINT] 1 applic TP TID 10 Days #1 tube Doxycycline Monohydrate 100 mg PO BID 10 Days #20 capsule Acetaminophen/Codeine [Tylenol /Codeine # 3 tab] 1 tab PO Q8H PRN #8 tab PRN Reason: Pain , Severe (7-10) Referrals: [facility] [Provider Group] - 2-3 Days AKIL NIÑO MD [Staff Physician] - 3-5 Days
== END 2020-04-08 12:49 | disposition home or self-care (01) ==
LOC: ED 09:48
DX: L73.2 Hidradenitis suppurativa (principal); L02.412 Cutaneous abscess of left axilla; I10 Essential (primary) hypertension; G43.909 Migraine, unspecified, not intractable, without status migrainosus; F17.200 Nicotine dependence, unspecified, uncomplicated; Z98.890 Other specified postprocedural states; Z79.899 Other long term (current) drug therapy
CPT/HCPCS: 87076; 87116; 87186; 99282

== ENCOUNTER 2020-09-21 08:47 | Emergency (ER) | payer MEDICAID, OTHER ==
[2020-09-21 09:29] LABS: Basophils % (Auto) 0.1 % (0.0-1.8); Eosinophils # (Auto) 0.1 K/mm3 (0.0-0.4); Hematocrit 34.5 % (30.3-42.9); Lymphocytes % (Auto) 19.8 % (13.4-35.0); Mean Corpuscular HGB Conc 32 % (30-34); Mean Corpuscular Volume 81 fl (79-97); Monocytes # (Auto) 0.5 K/mm3 (0.0-0.8); Platelet Count 270 K/mm3 (140-440); Red Blood Count 4.25 M/mm3 (3.65-5.03); Red Cell Distribution Width 17.8 % (13.2-15.2)
[2020-09-21] MEDS ORDERED: ONDANSETRON 4 MG ODT TAB PO ONE (09:57)
[2020-09-21] MEDS ORDERED: HYDROcodone/ACETAMINOPHEN 10-325MG TAB PO ONE (09:57)
[2020-09-21] MEDS ORDERED: KETOROLAC 60 MG/2 ML INJ IM ONE (09:57)
[2020-09-21] MEDS ORDERED: SODIUM CHLORIDE 0.9% 1000 ML 1,000 ML IV ONE (10:02)
--- NOTE | 2020-09-21 10:02 | Emergency Department Report ---
ED Female HPI - General Chief complaint: Vaginal Bleeding Stated complaint: HEAVY BLOOD CLOTS PASSING Time Seen by Provider: 09/21/20 09:57 Source: patient Mode of arrival: Ambulatory Limitations: No Limitations - History of Present Illness Initial comments: 30-year-old female presents to the ER today with complaint of severe vaginal bleeding. Patient states that she had an elective on September 13. She states that she was given a pill that starts with the letter M. She was given this medication from [facility]. She states that she was about 8 weeks . she states that after taking the pill she started with some mild bleeding and mild cramping. She states that her symptoms had stopped for 2 days but then started again. She states that initially was light bleeding and mild cramping but yesterday her symptoms significantly worsened. She states that she is not producing larger clots and has been bleeding a lot heavier to the point where she has use 2 boxes of the 24 overnight pads since yesterday. She reports significant cramps to her lower abdomen and her back. And she is also vomited 3 times since yesterday. She denies any abnormal vag discharge or passage of tissue. she states that she took Motrin without any relief of her symptoms. She denies any fever chills or UTI symptoms. She is Ab2. Complaint: vaginal bleeding -: Gradual (since 09/13/2020) - Related Data Home Medications Medication Instructions Recorded Confirmed Last Taken Pnv Plus Multivit Tab 1 tab PO DAILY 11/29/16 02/10/19 Unknown Previous Rx's Medication Instructions Recorded Last Taken Type Ibuprofen [Motrin] 600 mg PO Q8H PRN #30 tablet 11/29/16 Unknown Rx oxyCODONE /ACETAMINOPHEN [Percocet 1 tab PO Q6HR PRN #30 tablet 11/29/16 02/10/19 Rx 5/325] Permethrin 5% [Acticin 5% CREAM] 1 applicatio TP ONCE #1 tube 07/09/17 Unknown Rx Acetaminophen [Tylenol Arthritis] 650 mg PO Q6HR PRN #30 tablet.er 07/16/18 02/06/19 Rx Doxylamine Succinate/Vit B6 1 each PO QHS PRN #30 tablet. 07/16/18 Unknown Rx [Rosemary Infante 10-10 mg Tablet] Sharonda Root [Sharonda] 250 mg PO QID PRN #30 capsule 07/16/18 Unknown Rx Vit-Fe Fumar-FA [ 1 tab PO QDAY #30 tablet 07/16/18 02/09/19 Rx Vitamin] Famotidine [Pepcid] 20 mg PO QDAY #7 tablet 08/22/18 Unknown Rx Promethazine [Phenergan TAB] 25 mg PO Q6HR PRN #20 tab 08/22/18 02/08/19 Rx Ferrous Sulfate [Feosol 325 MG tab] 325 mg PO BID #30 tablet 02/09/19 Unknown Rx oxyCODONE /ACETAMINOPHEN [Percocet 1 tab PO Q6HR PRN #20 tablet 02/09/19 Unknown Rx 5/325] Acetaminophen/Codeine [Tylenol 1 tab PO Q8H PRN #8 tab 04/08/20 Unknown Rx /Codeine # 3 tab] Doxycycline Monohydrate 100 mg PO BID 10 Days #20 capsule 04/08/20 Unknown Rx Mupirocin [Bactroban 2% OINT] 1 applic TP TID 10 Days #1 tube 04/08/20 Unknown Rx HYDROcodone/APAP 10-325 [Lyon 1 each PO Q6HR PRN #12 tablet 09/21/20 Unknown Rx 10/325] Ibuprofen [Motrin 600 MG tab] 600 mg PO Q8H PRN #30 tablet 09/21/20 Unknown Rx Ondansetron [Zofran ODT TAB] 4 mg PO Q8HR PRN #20 tab.rapdis 09/21/20 Unknown Rx medroxyPROGESTERone ACETATE 10 mg PO QDAY #10 tablet 09/21/20 Unknown Rx [Provera] Allergies Allergy/AdvReac Type Severity Reaction Status Date / Time No Known Allergies Allergy Verified 09/21/20 09:00 ED Review of Systems ROS: Stated complaint: HEAVY BLOOD CLOTS PASSING Other details as noted in HPI Comment: All other systems reviewed and negative Constitutional: denies: chills, diaphoresis, fever, malaise, weakness Eyes: denies: eye pain, eye discharge, vision change ENT: denies: ear pain, throat pain Respiratory: denies: cough, shortness of breath, SOB with exertion, SOB at rest, stridor, wheezing Cardiovascular: denies: chest pain, palpitations, dyspnea on exertion, edema, syncope, paroxysmal nocturnal dyspnea Endocrine: no symptoms reported Gastrointestinal: abdominal pain, nausea. denies: vomiting, diarrhea, constipa tion, hematemesis, melena, hematochezia Genitourinary: other (Abnormal vaginal bleeding). denies: urgency, dysuria, frequency, hematuria, discharge, abnormal menses Musculoskeletal: back pain Skin: denies: rash, lesions ED Past Medical Hx - Past Medical History Hx Hypertension: Yes Hx Congestive Heart Failure: No Hx Diabetes: No Hx Deep Vein Thrombosis: No Hx Renal Disease: No Hx Sickle Cell Disease: No Hx Headaches / Migraines: Yes Hx Seizures: No Hx Asthma: No Hx COPD: No Hx HIV: No Additional medical history: Abscess left armpit in the past. Hemorrhoids - Surgical History Additional Surgical History: 08/2013 ----PT DENIES THIS INFO TODAY 05/21/15 - Social History Smoking Status: Current Every Day Smoker Substance Use Type: None - Medications Home Medications: Home Medications Medication Instructions Recorded Confirmed Last Taken Type Ibuprofen [Motrin] 600 mg PO Q8H PRN #30 tablet 11/29/16 02/10/19 Unknown Rx Pnv Plus Multivit Tab 1 tab PO DAILY 11/29/16 02/10/19 Unknown History oxyCODONE /ACETAMINOPHEN [Percocet 1 tab PO Q6HR PRN #30 tablet 11/29/16 02/10/19 02/10/19 Rx 5/325] Permethrin 5% [Acticin 5% CREAM] 1 applicatio TP ONCE #1 tube 07/09/17 02/10/19 Unknown Rx Acetaminophen [Tylenol Arthritis] 650 mg PO Q6HR PRN #30 tablet.er 07/16/18 02/10/19 02/06/19 Rx Doxylamine Succinate/Vit B6 1 each PO QHS PRN #30 tablet. 07/16/18 02/10/19 Unknown Rx [Rosemary Infante 10-10 mg Tablet] Sharonda Root [Sharonda] 250 mg PO QID PRN #30 capsule 07/16/18 02/10/19 Unknown Rx Vit-Fe Fumar-FA [ 1 tab PO QDAY #30 tablet 07/16/18 02/10/19 02/09/19 Rx Vitamin] Famotidine [Pepcid] 20 mg PO QDAY #7 tablet 08/22/18 02/10/19 Unknown Rx Promethazine [Phenergan TAB] 25 mg PO Q6HR PRN #20 tab 08/22/18 02/10/19 02/08/19 Rx Ferrous Sulfate [Feosol 325 MG tab] 325 mg PO BID #30 tablet 02/09/19 Unknown Rx oxyCODONE /ACETAMINOPHEN [Percocet 1 tab PO Q6HR PRN #20 tablet 02/09/19 Unknown Rx 5/325] Acetaminophen/Codeine [Tylenol 1 tab PO Q8H PRN #8 tab 04/08/20 Unknown Rx /Codeine # 3 tab] Doxycycline Monohydrate 100 mg PO BID 10 Days #20 capsule 04/08/20 Unknown Rx Mupirocin [Bactroban 2% OINT] 1 applic TP TID 10 Days #1 tube 04/08/20 Unknown Rx HYDROcodone/APAP 10-325 [Lyon 1 each PO Q6HR PRN #12 tablet 09/21/20 Unknown Rx 10/325] Ibuprofen [Motrin 600 MG tab] 600 mg PO Q8H PRN #30 tablet 09/21/20 Unknown Rx Ondansetron [Zofran ODT TAB] 4 mg PO Q8HR PRN #20 tab.rapdis 09/21/20 Unknown Rx medroxyPROGESTERone ACETATE 10 mg PO QDAY #10 tablet 09/21/20 Unknown Rx [Provera] ED Physical Exam - General Limitations: No Limitations General appearance: alert, other (Patient appears uncomfortable and in pain) - Head Head exam: Present: atraumatic, normocephalic, normal inspection - Eye Eye exam: Present: normal appearance, PERRL, EOMI Pupils: Present: normal accommodation - Respiratory Respiratory exam: Present: normal lung sounds bilaterally. Absent: respiratory distress - Cardiovascular Cardiovascular Exam: Present: regular rate, normal rhythm, normal heart sounds - GI/Abdominal GI/Abdominal exam: Present: soft, tenderness ( lower abdomen difusely with mild guarding but no rebound or rigidity ). Absent: distended - External exam: Present: normal external exam Speculum exam: Present: vaginal bleeding (moderate amt of blood in vag fault with small clots, no active hemorrhaging). Absent: vaginal discharge, cervical discharge, foreign body, tissue, laceration Bi-manual exam: Present: adnexal tenderness (bilaterally), uterine tenderness. Absent: adnexal mass - Neurological Exam Neurological exam: Present: alert, oriented X3, CN II-XII intact, normal gait - Psychiatric Psychiatric exam: Present: normal affect, normal mood - Skin Skin exam: Present: intact ED Course Vital Signs 09/21/20 09/21/20 09/21/20 08:57 13:00 13:16 Temperature 98.0 F Pulse Rate 105 H 93 H 89 Respiratory 15 18 18 Rate Blood Pressure 133/97 112/73 110/72 O2 Sat by Pulse 97 100 100 Oximetry ED Medical Decision Making - Lab Data Result diagrams: 09/21/20 09:07 09/21/20 09:07 - Radiology Data Radiology results: report reviewed Patient: JAQUAN CELESTE MR#: [id number] : 1990 Acct:[id number] Age/Sex: 30 / F ADM Date: 09/21/20 Loc: ED Attending Dr: Ordering Physician: RIANNA WEBBER Date of Service: 09/21/20 Procedure(s): US OB <= 14 wk fetus add gest Accession Number(s): [id number] cc: RIANNA WEBBER US OB <= 14 wk fetus add gest INDICATION / CLINICAL INFORMATION: vag bleeding after elective . COMPARISON: None available. FINDINGS: Uterus is mildly enlarged with slightly thickened endometrium measuring 1.4 cm. No intrauterine is seen. The ovaries are normal and size and appearance. No free fluid is identified. IMPRESSION: Mildly enlarged uterus was slightly thickened endometrium. No intrauterine is identified. Signer Name: Shay Esparza MD FACR Signed: 09/21/2020 11:40 AM Workstation Name: [id number] Transcribed By: MS Dictated By: Shay Esparza MD Electronically Authenticated By: Shay Esparza MD Signed Date/Time: 09/21/20 1140 DD/ 1139 TD/TT: - Medical Decision Making Labs/US reviewed -white count is normal, hemoglobin hematocrit is normal, CMP unremarkable, HCG Quant measures at 8421 and ultrasound shows mildly thickened endometrium otherwise no IUP or other significant abnormalities. Patient physically is well-appearing, nontoxic and currently her pain is better after meds and at this time she is not in any acute distress. He was observed ambulating to the bathroom with a normal gait. Her pelvic exam shows no significant hemorrhage and she reports improvement of her bleeding since she has been here. She is not orthostatic. She is O+ therefore no indication for RhoGam at this time. UA does not show UTI. 1359: Discussed case with Dr. Downs. Reviewed history, physical exam and findings, and labs and ultrasound results with her. Based on these results and patient's current condition, she feels that patient can be discharged home. She recommends starting patient on Provera 10 mg once a day for 10 days and patient to follow-up on an outpatient basis next week. 1404: Discussed lab results, and treatment plan per discussion with Dr. Downs. Patient expressed understanding of instructions and agree with plan. Patient was stable at time of discharge. Critical care attestation.: If time is entered above; I have spent that time in minutes in the direct care of this critically ill patient, excluding procedure time. ED Disposition Clinical Impression: Status post elective , Vaginal bleeding Disposition: TO HOME OR SELFCARE Is pt being admited?: No Does the pt Need Aspirin: No Condition: Stable Instructions: Miscarriage, [id number] Additional Instructions: Take the progesterone as prescribed. Take the Lyon, Motrin and the Zofran as prescribed. It is a follow-up with that you follow-up with your [facility] SILVERER/Dr. Pedraza or Dr. Downs next week. Return to ED if worse. Prescriptions: Ibuprofen [Motrin 600 MG tab] 600 mg PO Q8H PRN #30 tablet PRN Reason: Pain HYDROcodone/APAP 10-325 [Lyon 10/325] 1 each PO Q6HR PRN #12 tablet PRN Reason: Pain medroxyPROGESTERone ACETATE [Provera] 10 mg PO QDAY #10 tablet Ondansetron [Zofran ODT TAB] 4 mg PO Q8HR PRN #20 tab.rapdis PRN Reason: Vomiting Referrals: BOB PEDRAZA MD [Staff Physician] - 3-5 Days SIM DOWNS MD [Staff Physician] - 3-5 Days Forms: Work/School Release Form(ED) Time of Disposition: 14:10
--- NOTE | 2020-09-21 11:44 | Ultrasound Report ---
US OB <= 14 wk fetus add gest INDICATION / CLINICAL INFORMATION: vag bleeding after elective . COMPARISON: None available. FINDINGS: Uterus is mildly enlarged with slightly thickened endometrium measuring 1.4 cm. No intrauterine pregn neelam is seen. The ovaries are normal and size and appearance. No free fluid is identified. IMPRESSION: Mildly enlarged uterus was slightly thickened endometrium. No intrauterine is identified. Signer Name: Shay Esparza MD FACR Signed: 09/21/2020 11:40 AM Workstation Name: [id number]
[2020-09-21 13:13] LABS: Alanine Aminotransferase 19 units/L (7-56); BUN/Creatinine Ratio 14; Blood Urea Nitrogen 11 mg/dL (7-17); Calcium 9.1 mg/dL (8.4-10.2); Hemolysis Index 5
[2020-09-21 13:21] VITALS: BP 110/72
[2020-09-21 14:56] LABS: Bilirubin,Urine NEG (Negative); Blood,Urine LG (Negative); Color,Urine Yellow (Yellow); Mucus,Urine 1+ /HPF; Urobilinogen,Urine < 2.0 mg/dL (<2.0)
[2020-09-21 15:02] LABS: RBC,Urine > 182.0 /HPF (0.0-6.0)
== END 2020-09-21 15:30 | disposition home or self-care (01) ==
LOC: ED 08:47
DX: N93.9 Abnormal uterine and vaginal bleeding, unspecified (principal); R10.30 Lower abdominal pain, unspecified; I10 Essential (primary) hypertension; G43.909 Migraine, unspecified, not intractable, without status migrainosus; F17.200 Nicotine dependence, unspecified, uncomplicated; Z98.890 Other specified postprocedural states; Z79.1 Long term (current) use of non-steroidal anti-inflammatories (NSAID); Z79.899 Other long term (current) drug therapy
CPT/HCPCS: 36415; 76801; 80053; 81001; 84702; 84703; 85025; 86900; 86901; 87086; 87210; 87591; 96360; 96372; 99284; J1885; J7030; 76802; Q0162

== ENCOUNTER 2021-04-22 11:10 | Outpatient (CLI) | payer MEDICAID ==
[2021-04-22] MEDS ORDERED: LACTATED RINGERS 1,000 ML IV ONE (11:56)
[2021-04-22 12:16] LABS: Bacteria,Urine 2+ /HPF (Negative); Bilirubin,Urine NEG (Negative); Blood,Urine MOD (Negative); Color,Urine Yellow (Yellow); Mucus,Urine FEW /HPF; Urobilinogen,Urine < 2.0 mg/dL (<2.0)
[2021-04-22 12:22] VITALS: BP 136/78
[2021-04-22] MEDS ORDERED: LIDOCAINE-MPF (1%) 10 MG/1 ML VIAL 5 ML INFILTRATI ONE (13:33)
--- NOTE | 2021-04-22 14:04 | Event Note ---
Date: 04/23/21 Pt is a 31 year old -Citizen Of [place] female -0-1-5 LEANDRO 09/15/[birth year]21 at 19 weeks and 1 day who presents after maternal- medicine visit with ultrasound revealing anhydramnios and an adjusted ultrasound age of 16 weeks. Patient now reports leaking fluid since April 13, 2021 and intermittent vaginal spotting. Speculum exam reveals mucoid discharge with no gross blood. There is no pooling at this time. ROM plus testing is negative today. However, given that the patient has possibly been ruptured for 9 days these findings are not unexpected. The patient remains afebrile at this time. She has been offered termination of the and declines though she is aware of risk of infection, bleeding, and maternal and morbidity. She will be discharged today with weekly visits. She will perform daily temperature checks and will notify the office of any fever, abdominal pain, pelvic pain, or heavy vaginal bleeding that she experiences. Her urinalysis today was consistent with a urinary tract infection and the patient was given Rocephin 1 g IM.
== END 2021-04-22 14:10 | disposition short-term general hospital (02) ==
LOC: TRG 11:10 → APU 11:11 → TRG 14:10
PROVIDERS: ATTEND Obstetrics & Gynecology
DX: O20.9 Hemorrhage in early pregnancy, unspecified (principal); O26.852 Spotting complicating pregnancy, second trimester; O99.342 Other mental disorders complicating pregnancy, second trimester; F32.9 Major depressive disorder, single episode, unspecified; O16.2 Unspecified maternal hypertension, second trimester; O99.332 Smoking (tobacco) complicating pregnancy, second trimester; F17.200 Nicotine dependence, unspecified, uncomplicated; Z3A.20 20 weeks gestation of pregnancy
CPT/HCPCS: 36415; 59025; 81001; 84112; 96372; J0696; J3490

== ENCOUNTER 2021-05-04 15:09 | Outpatient (CLI) | payer MEDICAID ==
[2021-05-04] MEDS ORDERED: BUTALB/ACETAMINOPHEN/CAFFEINE TAB PO PRN (16:17)
[2021-05-04 17:17] VITALS: BP 138/88
--- NOTE | 2021-05-04 17:40 | Ultrasound Report ---
Obstetrical ultrasound limited INDICATION: Oligohydramnios. IMPRESSION: ESTHER is decreased measuring 3.9 cm. heart rates 157 bpm the cervical length is 5.7 c m. Signer Name: Benjamín Matthews MD Signed: 05/04/2021 5:35 PM Workstation Name: [id number]
== END 2021-05-04 17:59 | disposition home or self-care (01) ==
LOC: TRG 15:09 → APU 15:11 → TRG 17:59
PROVIDERS: ATTEND Obstetrics & Gynecology
DX: O46.90 Antepartum hemorrhage, unspecified, unspecified trimester (principal); Z3A.00 Weeks of gestation of pregnancy not specified
CPT/HCPCS: 76815